=== PATIENT | male | born 1960 | race Caucasian/White ===

== ENCOUNTER 2016-05-17 18:47 | Emergency (ER) | payer SELFPAY ==
[~2016-05-17 18:47] MED LIST: GLYB5TAB3 PO; LISI-313 PO; MTF1000T PO; PIOG15TA21 PO; PIOG15TA4 PO; ZOC10 PO
== END 2016-05-17 20:07 | disposition left against medical advice (07) ==
LOC: E/R 18:47
DX: Z53.21 Procedure and treatment not carried out due to patient leaving prior to being seen by health care provider (principal)